=== PATIENT | male | born 1980 | race Caucasian/White ===

== ENCOUNTER 2017-03-24 13:20 | Inpatient (IN) | payer MEDICAID, OTHER ==
[~2017-03-24] VITALS: Ht 175.3 cm; Wt 58.7 kg
[~2017-03-24 13:20] MED LIST: BENZ2TAB10 PO; RISP3 PO
[2017-03-24 14:02] LABS: BASOPHILS % (AUTO) 0.7 % (0.0-2.0); EOSINOPHILS % (AUTO) 4.2 % (1.0-6.0); HEMATOCRIT 44.8 % (41-53); HEMOGLOBIN 14.7 g/dL (13.5-17.5); LYMPHOCYTES # (AUTO) 2.4 K/uL (1.0-4.8); LYMPHOCYTES % (AUTO) 24.1 % (22.0-44.0); MEAN CORPUSCULAR HEMOGLOBIN 31.8 pg (26.0-34.0); MEAN CORPUSCULAR HGB CONC 32.7 G/dL (31.0-37.0); MEAN CORPUSCULAR VOLUME 97 fL (80-100); MONOCYTES # (AUTO) 0.8 K/uL (0.1-1.0); MONOCYTES % (AUTO) 8.1 % (2.0-9.0); NEUTROPHILS # (AUTO) 6.2 K/uL (1.8-7.7); NEUTROPHILS % (AUTO) 62.9 % (40.0-70.0); PLATELET COUNT (AUTO) 198 K/uL (150-450); RED CELL DISTRIBUTION WIDTH 14.1 % (11.5-14.5); WHITE BLOOD COUNT (AUTO) 9.9 K/uL (4.5-11.0)
[2017-03-24 14:10] LABS: ANION GAP 10 mmol/L (8-16); CALCIUM, TOTAL 8.7 mg/dL (8.8-10.5); CARBON DIOXIDE 26 mmol/L (22-29); CHLORIDE 104 mmol/L (98-107); CREATININE 0.79 mg/dL (0.60-1.30); GLOMERULAR FILTR. RATE CALC > 60 mL/min (>60); POTASSIUM 4.2 mmol/L (3.5-5.1); SODIUM SERUM 140 mmol/L (136-145); UREA NITROGEN, BLOOD 13 mg/dL (7-18)
[2017-03-24 14:16] LABS: ALANINE AMINOTRANSFERASE 23 U/L (12-78); ALBUMIN 3.8 g/dL (3.4-5.0); ASPARTATE AMINOTRANSFERASE 17 U/L (15-37); BILIRUBIN,TOTAL 0.3 mg/dL (0.1-1.0); TOTAL PROTEIN, SERUM 7.7 g/dL (6.4-8.2)
[2017-03-24 16:15] VITALS: BP 135/73
[2017-03-24] MEDS ORDERED: ZOLPIDEM TARTRATE 10 MG TABLET PO PRN (16:30)
[2017-03-24] MEDS: LORazepam 2 MG TABLET PO PRN (16:39)
[2017-03-24] MEDS: HALOPERIDOL 5 MG TABLET PO PRN (16:39)
[2017-03-25 07:15] VITALS: BP 117/72
[2017-03-25] MEDS ORDERED: LORazepam 2 MG/ML VIAL ONE (07:41)
[2017-03-25] MEDS ORDERED: DiphenhydrAMINE HCL 50 MG/ML VIAL ONE (07:42)
[2017-03-25] MEDS ORDERED: HALOPERIDOL LACTATE 5 MG/ML VIAL ONE (07:42)
[2017-03-25] MEDS ORDERED: HALOPERIDOL LACTATE 5 MG/ML VIAL IM ONE (07:45)
[2017-03-25] MEDS ORDERED: LORazepam 2 MG/ML VIAL IM ONE (07:45)
[2017-03-25] MEDS ORDERED: DiphenhydrAMINE HCL 50 MG/ML VIAL IM ONE (07:45)
[2017-03-25] MEDS ORDERED: ACETAMINOPHEN 325 MG TABLET PO PRN (08:00)
[2017-03-25] MEDS ORDERED: BACITRACIN 28.4 GM OINTMENT TP PRN (08:00)
[2017-03-25] MEDS ORDERED: IBUPROFEN 600 MG TABLET PO PRN (08:00)
[2017-03-25] MEDS ORDERED: PETROLATUM,WHITE 71 GM JELLY TP PRN (08:00)
[2017-03-25] MEDS ORDERED: ONDANSETRON HCL 4 MG TABLET PO PRN (08:00)
[2017-03-25] MEDS ORDERED: MAG HYDROX/AL HYDROX/SIMETH ES 30 ML SUSPENSION UDCUP PO PRN (08:00)
[2017-03-25] MEDS ORDERED: ALBUTEROL SULFATE HFA 90 MCG/PUFF 8 GM INHALER IH PRN (08:00)
[2017-03-25] MEDS ORDERED: CloNIDine HCL 0.1 MG TABLET PO PRN (08:00)
[2017-03-25] MEDS ORDERED: MAGNESIUM HYDROXIDE SUSPENSION 30 ML UDCUP PO PRN (08:00)
[2017-03-25] MEDS ORDERED: LOPERAMIDE HCL 2 MG CAPSULE PO PRN (08:00)
[2017-03-25] MEDS ORDERED: BENZOCAINE/MENTHOL LOZENGE [8 LOZENGES/PACKET] MM PRN (08:15)
[2017-03-25] MEDS: FluPHENAZine DECANOATE 25 MG/ML IM SCH (16:10)
[2017-03-25] MEDS: BENZTROPINE MESYLATE 2 MG TABLET PO SCH (20:14)
[2017-03-25] MEDS: FluPHENAZine HCL 10 MG TABLET PO SCH (20:14)
[2017-03-25 20:39] VITALS: BP 119/74
[2017-03-26 04:23] VITALS: BP 115/76
[2017-03-26] MEDS: HALOPERIDOL 5 MG TABLET PO PRN ×2 (07:21→11:26)
[2017-03-26] MEDS: LORazepam 2 MG TABLET PO PRN ×2 (07:21→11:26)
[2017-03-26 08:35] VITALS: BP 114/75
[2017-03-26 16:45] VITALS: BP 120/69
[2017-03-26] MEDS: BENZTROPINE MESYLATE 2 MG TABLET PO SCH (20:26)
[2017-03-26] MEDS: FluPHENAZine HCL 10 MG TABLET PO SCH (20:26)
[2017-03-27] MEDS: HALOPERIDOL 5 MG TABLET PO PRN ×2 (07:44→14:31)
[2017-03-27] MEDS: LORazepam 2 MG TABLET PO PRN ×2 (07:44→14:31)
[2017-03-27 07:59] LABS: CHOL/HDL RATIO 2.2 (4.2-7.3); THYROID STIMULATING HORMONE 3.32 uIU/mL (0.36-3.74)
[2017-03-27 09:08] VITALS: BP 129/99
[2017-03-27 16:37] VITALS: BP 127/79
[2017-03-27] MEDS: FluPHENAZine HCL 10 MG TABLET PO SCH (21:23)
[2017-03-27] MEDS: BENZTROPINE MESYLATE 2 MG TABLET PO SCH (21:23)
[2017-03-28 17:02] VITALS: BP 125/88
[2017-03-28] MEDS: BENZTROPINE MESYLATE 2 MG TABLET PO SCH (20:53)
[2017-03-28] MEDS ORDERED: FluPHENAZine HCL 5 MG TABLET PO SCH (21:00)
[2017-03-29 08:04] VITALS: BP 121/75
[2017-03-29] MEDS: CHOLECALCIFEROL (VIT D3) 1,000 UNITS TABLET PO SCH (08:23)
[2017-03-29] MEDS: LORazepam 2 MG TABLET PO PRN (10:27)
[2017-03-29] MEDS: HALOPERIDOL 5 MG TABLET PO PRN (10:27)
[2017-03-29 16:00] VITALS: BP 106/62
[2017-03-29] MEDS: BENZTROPINE MESYLATE 2 MG TABLET PO SCH (20:30)
[2017-03-29] MEDS: FluPHENAZine HCL 10 MG TABLET PO SCH (20:30)
[2017-03-30 09:16] VITALS: BP 110/68
[2017-03-30] MEDS: CHOLECALCIFEROL (VIT D3) 1,000 UNITS TABLET PO SCH (09:17)
[2017-03-30 16:56] VITALS: BP 129/82
[2017-03-30] MEDS: FluPHENAZine HCL 10 MG TABLET PO SCH (21:19)
[2017-03-30] MEDS: BENZTROPINE MESYLATE 2 MG TABLET PO SCH (21:20)
[2017-03-31 08:22] VITALS: BP 119/64
[2017-03-31] MEDS: CHOLECALCIFEROL (VIT D3) 1,000 UNITS TABLET PO SCH (08:28)
[2017-03-31] MEDS: LORazepam 2 MG TABLET PO PRN ×2 (12:24→16:23)
[2017-03-31] MEDS: HALOPERIDOL 5 MG TABLET PO PRN (12:24)
[2017-03-31 17:27] VITALS: BP 105/60
[2017-03-31] MEDS: BENZTROPINE MESYLATE 2 MG TABLET PO SCH (22:17)
[2017-03-31] MEDS: FluPHENAZine HCL 10 MG TABLET PO SCH (22:17)
[2017-04-01 08:01] VITALS: BP 119/62
[2017-04-01] MEDS: CHOLECALCIFEROL (VIT D3) 1,000 UNITS TABLET PO SCH (08:45)
[2017-04-01] MEDS: LORazepam 2 MG TABLET PO PRN (08:45)
[2017-04-01] MEDS: HALOPERIDOL 5 MG TABLET PO PRN (08:45)
[2017-04-01] MEDS: FluPHENAZine HCL 10 MG TABLET PO SCH (20:07)
[2017-04-01] MEDS: BENZTROPINE MESYLATE 2 MG TABLET PO SCH (20:07)
[2017-04-02 08:22] VITALS: BP 111/63
[2017-04-02] MEDS: LORazepam 2 MG TABLET PO PRN (08:34)
[2017-04-02] MEDS: HALOPERIDOL 5 MG TABLET PO PRN (08:34)
[2017-04-02] MEDS: CHOLECALCIFEROL (VIT D3) 1,000 UNITS TABLET PO SCH (08:34)
[2017-04-02 16:18] VITALS: BP 115/65
[2017-04-02] MEDS: FluPHENAZine HCL 10 MG TABLET PO SCH (22:26)
[2017-04-02] MEDS: BENZTROPINE MESYLATE 2 MG TABLET PO SCH (22:27)
[2017-04-03 08:44] VITALS: BP 123/59
[2017-04-03] MEDS: CHOLECALCIFEROL (VIT D3) 1,000 UNITS TABLET PO SCH (09:12)
[2017-04-03 20:45] VITALS: BP 126/62
[2017-04-03] MEDS: BENZTROPINE MESYLATE 2 MG TABLET PO SCH (22:04)
[2017-04-03] MEDS: FluPHENAZine HCL 10 MG TABLET PO SCH (22:04)
[2017-04-04] MEDS: CHOLECALCIFEROL (VIT D3) 1,000 UNITS TABLET PO SCH (08:14)
[2017-04-04 08:33] VITALS: BP 115/73
[2017-04-04 17:10] VITALS: BP 131/75
[2017-04-04] MEDS: BENZTROPINE MESYLATE 2 MG TABLET PO SCH (20:14)
[2017-04-04] MEDS: FluPHENAZine HCL 10 MG TABLET PO SCH (20:14)
[2017-04-05] MEDS: CHOLECALCIFEROL (VIT D3) 1,000 UNITS TABLET PO SCH (08:45)
[2017-04-05] MEDS: RisperiDONE 3 MG TABLET PO SCH ×2 (08:45→16:25)
[2017-04-05 10:50] VITALS: BP 131/73
[2017-04-05] MEDS: BENZTROPINE MESYLATE 2 MG TABLET PO SCH (20:59)
[2017-04-05] MEDS: FluPHENAZine HCL 10 MG TABLET PO SCH (20:59)
[2017-04-06 08:02] VITALS: BP 114/74
[2017-04-06] MEDS: RisperiDONE 3 MG TABLET PO SCH ×2 (09:15→17:16)
[2017-04-06] MEDS: CHOLECALCIFEROL (VIT D3) 1,000 UNITS TABLET PO SCH (09:15)
[2017-04-06 17:00] VITALS: BP 115/80
[2017-04-06] MEDS: FluPHENAZine HCL 10 MG TABLET PO SCH (20:26)
[2017-04-06] MEDS: BENZTROPINE MESYLATE 2 MG TABLET PO SCH (20:27)
[2017-04-07 08:26] VITALS: BP 127/90
[2017-04-07] MEDS: CHOLECALCIFEROL (VIT D3) 1,000 UNITS TABLET PO SCH (09:32)
[2017-04-07] MEDS: RisperiDONE 3 MG TABLET PO SCH ×2 (09:32→16:21)
[2017-04-07 20:03] VITALS: BP 131/70
[2017-04-07] MEDS: BENZTROPINE MESYLATE 2 MG TABLET PO SCH (20:17)
[2017-04-07] MEDS: FluPHENAZine HCL 10 MG TABLET PO SCH (20:17)
[2017-04-08 08:18] VITALS: BP 104/60
[2017-04-08] MEDS: CHOLECALCIFEROL (VIT D3) 1,000 UNITS TABLET PO SCH (08:59)
[2017-04-08] MEDS: RisperiDONE 3 MG TABLET PO SCH (09:00)
[2017-04-08] MEDS: FluPHENAZine DECANOATE 25 MG/ML IM SCH (09:09)
[2017-04-08] MEDS ORDERED: FLUP10 PO (11:59)
[2017-04-08] MEDS ORDERED: RISP3 PO (11:59)
[2017-04-08] MEDS ORDERED: BENZ2TAB10 PO (11:59)
[2017-04-08] MEDS ORDERED: FLUD25I SQ (11:59)
[2017-04-08] MEDS ORDERED: VITAD1000 PO (12:23)
== END 2017-04-08 14:29 | disposition home or self-care (01) | DRG 750 ==
LOC: EMS 13:25 → 3EC 15:23
PROVIDERS: ADMIT Psychiatry & Neurology Psychiatry; ATTEND Psychiatry & Neurology Psychiatry
DX: F20.0 Paranoid schizophrenia (principal); E55.9 Vitamin D deficiency, unspecified; E83.51 Hypocalcemia; F17.210 Nicotine dependence, cigarettes, uncomplicated; K59.00 Constipation, unspecified; G47.00 Insomnia, unspecified; Z71.6 Tobacco abuse counseling; Z59.0 Homelessness; Z56.0 Unemployment, unspecified; Z79.899 Other long term (current) drug therapy
CPT/HCPCS: 82306; 84443; 99285; G0480; J1200; J1630; J2060; J2680

== ENCOUNTER 2017-04-12 19:23 | Emergency (ER) | payer MEDICAID, OTHER ==
[~2017-04-12] VITALS: Ht 172.7 cm; Wt 88.6 kg
[~2017-04-12 19:23] MED LIST changes: +FLUD25I SQ; +FLUP10 PO; +VITAD1000 PO
[2017-04-12 20:57] LABS: BASOPHILS % (AUTO) 0.1 % (0.0-2.0); EOSINOPHILS % (AUTO) 0.8 % (1.0-6.0); HEMATOCRIT 43.8 % (41-53); HEMOGLOBIN 14.2 g/dL (13.5-17.5); LYMPHOCYTES # (AUTO) 1.8 K/uL (1.0-4.8); LYMPHOCYTES % (AUTO) 9.8 % (22.0-44.0); MEAN CORPUSCULAR HEMOGLOBIN 31.5 pg (26.0-34.0); MEAN CORPUSCULAR HGB CONC 32.5 G/dL (31.0-37.0); MEAN CORPUSCULAR VOLUME 97 fL (80-100); MONOCYTES # (AUTO) 0.9 K/uL (0.1-1.0); MONOCYTES % (AUTO) 4.5 % (2.0-9.0); NEUTROPHILS % (AUTO) 84.8 % (40.0-70.0); PLATELET COUNT (AUTO) 239 K/uL (150-450); RED BLOOD CELL COUNT(AUTO) 4.52 MIL/uL (4.50-5.90); RED CELL DISTRIBUTION WIDTH 13.3 % (11.5-14.5); WHITE BLOOD COUNT (AUTO) 18.9 K/uL (4.5-11.0)
[2017-04-12 21:07] LABS: ANION GAP 9 mmol/L (8-16); CALCIUM, TOTAL 8.2 mg/dL (8.8-10.5); CARBON DIOXIDE 27 mmol/L (22-29); CHLORIDE 98 mmol/L (98-107); CREATININE 0.82 mg/dL (0.60-1.30); GLOMERULAR FILTR. RATE CALC > 60 mL/min (>60); SODIUM SERUM 134 mmol/L (136-145); UREA NITROGEN, BLOOD 2 mg/dL (7-18)
[2017-04-12 21:14] LABS: ALANINE AMINOTRANSFERASE 25 U/L (12-78); ALBUMIN 3.6 g/dL (3.4-5.0); ASPARTATE AMINOTRANSFERASE 17 U/L (15-37); BILIRUBIN,TOTAL 0.3 mg/dL (0.1-1.0); TOTAL PROTEIN, SERUM 7.1 g/dL (6.4-8.2)
[2017-04-12] MEDS ORDERED: POTASSIUM CHLORIDE 10% 40 MEQ/30 ML LIQUID UDCUP PO ONE (21:45)
[2017-04-12] MEDS ORDERED: GENTAMICIN SULFATE 0.3% OPHTHALMIC SOLUTION 5 ML OU ONE (22:00)
[2017-04-12 22:19] VITALS: BP 142/68
== END 2017-04-12 22:20 | disposition home or self-care (01) ==
LOC: EMS 19:24
DX: H57.11 Ocular pain, right eye (principal); H57.12 Ocular pain, left eye; F20.9 Schizophrenia, unspecified
CPT/HCPCS: 36415; 80053; 80307; 85025; 99284; G0480

== ENCOUNTER 2017-10-16 18:26 | Inpatient (IN) | payer MEDICAID, OTHER ==
[~2017-10-16] VITALS: Ht 165.1 cm; Wt 58.0 kg
[2017-10-16 19:01] LABS: BASOPHILS % (AUTO) 0.6 % (0.0-2.0); EOSINOPHILS % (AUTO) 3.3 % (1.0-6.0); HEMATOCRIT 42.3 % (41-53); HEMOGLOBIN 14.6 g/dL (13.5-17.5); LYMPHOCYTES # (AUTO) 2.7 K/uL (1.0-4.8); LYMPHOCYTES % (AUTO) 28.3 % (22.0-44.0); MEAN CORPUSCULAR HEMOGLOBIN 33.1 pg (26.0-34.0); MEAN CORPUSCULAR HGB CONC 34.6 G/dL (31.0-37.0); MEAN CORPUSCULAR VOLUME 96 fL (80-100); MONOCYTES # (AUTO) 0.5 K/uL (0.1-1.0); MONOCYTES % (AUTO) 4.7 % (2.0-9.0); NEUTROPHILS # (AUTO) 6.1 K/uL (1.8-7.7); NEUTROPHILS % (AUTO) 63.1 % (40.0-70.0); PLATELET COUNT (AUTO) 226 K/uL (150-450); RED BLOOD CELL COUNT(AUTO) 4.42 MIL/uL (4.50-5.90); RED CELL DISTRIBUTION WIDTH 13.5 % (11.5-14.5); WHITE BLOOD COUNT (AUTO) 9.7 K/uL (4.5-11.0)
[2017-10-16 19:07] LABS: ANION GAP 12 mmol/L (8-16); CALCIUM, TOTAL 8.7 mg/dL (8.8-10.5); CARBON DIOXIDE 23 mmol/L (22-29); CHLORIDE 103 mmol/L (98-107); CREATININE 0.83 mg/dL (0.60-1.30); GLOMERULAR FILTR. RATE CALC > 60 mL/min (>60); POTASSIUM 3.9 mmol/L (3.5-5.1); SODIUM SERUM 138 mmol/L (136-145); UREA NITROGEN, BLOOD 17 mg/dL (7-18)
[2017-10-16 19:14] LABS: ALANINE AMINOTRANSFERASE 32 U/L (12-78); ALBUMIN 3.7 g/dL (3.4-5.0); ASPARTATE AMINOTRANSFERASE 54 U/L (15-37); BILIRUBIN,TOTAL 0.2 mg/dL (0.1-1.0); TOTAL PROTEIN, SERUM 7.3 g/dL (6.4-8.2)
[2017-10-17 09:01] LABS: CHOL/HDL RATIO 2.3 (4.2-7.3)
[2017-10-17] MEDS: LORazepam 2 MG TABLET PO PRN (15:59)
[2017-10-17] MEDS: HALOPERIDOL 5 MG TABLET PO PRN (15:59)
[2017-10-17 16:24] VITALS: BP 124/74
[2017-10-18] MEDS ORDERED: INFLUENZA VIRUS VACCINE QVS 2017-18 (3YR+)/PF 60 MCG/0.5 ML SYRINGE IM ONE (01:00)
[2017-10-18 07:14] VITALS: BP 102/66
[2017-10-18 08:12] VITALS: BP 107/65
[2017-10-18] MEDS: LORazepam 2 MG TABLET PO PRN ×3 (08:20→16:55)
[2017-10-18] MEDS: HALOPERIDOL 5 MG TABLET PO PRN ×2 (08:20→12:55)
[2017-10-18] MEDS ORDERED: CloNIDine HCL 0.1 MG TABLET PO PRN (08:30)
[2017-10-18] MEDS ORDERED: ALBUTEROL SULFATE HFA 90 MCG/PUFF 8 GM INHALER IH PRN (08:30)
[2017-10-18] MEDS ORDERED: MAGNESIUM HYDROXIDE SUSPENSION 30 ML UDCUP PO PRN (08:30)
[2017-10-18] MEDS ORDERED: BACITRACIN 28.4 GM OINTMENT TP PRN (08:30)
[2017-10-18] MEDS ORDERED: IBUPROFEN 600 MG TABLET PO PRN (08:30)
[2017-10-18] MEDS ORDERED: ONDANSETRON HCL 4 MG TABLET PO PRN (08:30)
[2017-10-18] MEDS ORDERED: PETROLATUM,WHITE 71 GM JELLY TP PRN (08:30)
[2017-10-18] MEDS ORDERED: LOPERAMIDE HCL 2 MG CAPSULE PO PRN (08:30)
[2017-10-18] MEDS ORDERED: ACETAMINOPHEN 325 MG TABLET PO PRN (08:30)
[2017-10-18] MEDS ORDERED: BENZOCAINE/MENTHOL LOZENGE MM PRN (08:30)
[2017-10-18] MEDS ORDERED: MAG HYDROX/AL HYDROX/SIMETH ES 30 ML SUSPENSION UDCUP PO PRN (08:30)
[2017-10-18] MEDS: CHOLECALCIFEROL (VIT D3) 1,000 UNITS TABLET PO SCH (09:10)
[2017-10-18 16:00] VITALS: BP 119/82
[2017-10-18] MEDS: RisperiDONE 3 MG TABLET PO SCH (16:55)
[2017-10-18] MEDS: BENZTROPINE MESYLATE 2 MG TABLET PO SCH (20:53)
[2017-10-18] MEDS: ZOLPIDEM TARTRATE 10 MG TABLET PO PRN (20:53)
[2017-10-18] MEDS: FluPHENAZine HCL 10 MG TABLET PO SCH (20:53)
[2017-10-19 05:54] VITALS: BP 113/59
[2017-10-19 08:23] VITALS: BP 131/72
[2017-10-19] MEDS: RisperiDONE 3 MG TABLET PO SCH ×2 (09:26→16:12)
[2017-10-19] MEDS: CHOLECALCIFEROL (VIT D3) 1,000 UNITS TABLET PO SCH (09:26)
[2017-10-19 16:00] VITALS: BP 122/82
[2017-10-19] MEDS: HALOPERIDOL 5 MG TABLET PO PRN (16:12)
[2017-10-19] MEDS: LORazepam 2 MG TABLET PO PRN ×2 (16:12→20:42)
[2017-10-19] MEDS: FluPHENAZine HCL 10 MG TABLET PO SCH (20:41)
[2017-10-19] MEDS: BENZTROPINE MESYLATE 2 MG TABLET PO SCH (20:42)
[2017-10-19] MEDS: ZOLPIDEM TARTRATE 10 MG TABLET PO PRN (20:42)
[2017-10-20 04:49] VITALS: BP 121/65
[2017-10-20] MEDS: RisperiDONE 3 MG TABLET PO SCH ×2 (08:58→16:22)
[2017-10-20] MEDS: CHOLECALCIFEROL (VIT D3) 1,000 UNITS TABLET PO SCH (08:58)
[2017-10-20 09:21] VITALS: BP 122/73
[2017-10-20 16:30] VITALS: BP 126/75
[2017-10-20] MEDS: BENZTROPINE MESYLATE 2 MG TABLET PO SCH (20:31)
[2017-10-20] MEDS: ZOLPIDEM TARTRATE 10 MG TABLET PO PRN (20:31)
[2017-10-20] MEDS: FluPHENAZine HCL 10 MG TABLET PO SCH (20:31)
[2017-10-21 00:13] VITALS: BP 109/71
[2017-10-21] MEDS: CHOLECALCIFEROL (VIT D3) 1,000 UNITS TABLET PO SCH (08:25)
[2017-10-21] MEDS: LORazepam 2 MG TABLET PO PRN (08:25)
[2017-10-21] MEDS: HALOPERIDOL 5 MG TABLET PO PRN (08:25)
[2017-10-21] MEDS: RisperiDONE 3 MG TABLET PO SCH (08:25)
[2017-10-21 08:32] VITALS: BP 113/77
== END 2017-10-21 14:55 | disposition home or self-care (01) | DRG 750 ==
LOC: EMS 18:28 → EEVIPCON 18:28 → B3A 10-17 15:27
DX: F20.0 Paranoid schizophrenia (principal); Z91.14 Patient's other noncompliance with medication regimen; E55.9 Vitamin D deficiency, unspecified; F17.200 Nicotine dependence, unspecified, uncomplicated; F18.90 Inhalant use, unspecified, uncomplicated; G47.00 Insomnia, unspecified; K59.00 Constipation, unspecified; F41.9 Anxiety disorder, unspecified; Z28.21 Immunization not carried out because of patient refusal; Z79.899 Other long term (current) drug therapy; Z71.51 Drug abuse counseling and surveillance of drug abuser
CPT/HCPCS: 99285; G0480

== ENCOUNTER 2018-04-06 13:11 | Inpatient (IN) | payer MEDICAID, OTHER ==
[~2018-04-06] VITALS: Ht 172.7 cm; Wt 61.7 kg
[~2018-04-06 13:11] MED LIST changes: -FLUD25I SQ
[2018-04-06 14:21] LABS: BASOPHILS % (AUTO) 0.9 % (0.0-2.0); HEMATOCRIT 45.7 % (41-53); LYMPHOCYTES # (AUTO) 1.9 K/uL (1.0-4.8); LYMPHOCYTES % (AUTO) 27.2 % (22.0-44.0); MEAN CORPUSCULAR HEMOGLOBIN 33.2 pg (26.0-34.0); MEAN CORPUSCULAR VOLUME 95 fL (80-100); MONOCYTES # (AUTO) 0.5 K/uL (0.1-1.0); MONOCYTES % (AUTO) 6.8 % (2.0-9.0); NEUTROPHILS # (AUTO) 4.2 K/uL (1.8-7.7); NEUTROPHILS % (AUTO) 62.1 % (40.0-70.0); PLATELET COUNT (AUTO) 190 K/uL (150-450); RED BLOOD CELL COUNT(AUTO) 4.82 MIL/uL (4.50-5.90); RED CELL DISTRIBUTION WIDTH 13.2 % (11.5-14.5)
[2018-04-06 14:35] LABS: ANION GAP 10 mmol/L (8-16); CALCIUM, TOTAL 8.7 mg/dL (8.8-10.5); CARBON DIOXIDE 26 mmol/L (22-29); CHLORIDE 106 mmol/L (98-107); CREATININE 0.93 mg/dL (0.60-1.30); GLOMERULAR FILTR. RATE CALC > 60 mL/min (>60); GLUCOSE,RANDOM 92 mg/dL (70-110); POTASSIUM 4.1 mmol/L (3.5-5.1); SODIUM SERUM 142 mmol/L (136-145); UREA NITROGEN, BLOOD 16 mg/dL (7-18)
[2018-04-06 14:41] LABS: ALANINE AMINOTRANSFERASE 25 U/L (12-78); ALBUMIN 3.8 g/dL (3.4-5.0); ALKALINE PHOSPHATASE 86 U/L (46-116); ASPARTATE AMINOTRANSFERASE 22 U/L (15-37); BILIRUBIN,TOTAL 0.3 mg/dL (0.1-1.0); TOTAL PROTEIN, SERUM 7.4 g/dL (6.4-8.2)
[2018-04-06 15:27] LABS: AMPHET/METH SCREEN,URINE NEGATIVE (NEGATIVE); BARBITURATE SCREEN, URINE NEGATIVE (NEGATIVE); BENZODIAZEPINES SCREEN,URINE NEGATIVE (NEGATIVE); CANNABINOID SCREEN,URINE NEGATIVE (NEGATIVE); COCAINE SCREEN,URINE NEGATIVE (NEGATIVE); METHADONE SCREEN, URINE NEGATIVE (NEGATIVE); OPIATE SCREEN,URINE NEGATIVE (NEGATIVE)
[2018-04-06 15:28] LABS: PHENCYCLIDINE SCREEN,URINE NEGATIVE (NEGATIVE)
[2018-04-06] MEDS ORDERED: LORazepam 2 MG/ML VIAL IM ONE (15:30)
[2018-04-06] MEDS ORDERED: DiphenhydrAMINE HCL 50 MG/ML VIAL IM ONE (15:30)
[2018-04-06] MEDS ORDERED: HALOPERIDOL LACTATE 5 MG/ML VIAL IM ONE (15:30)
[2018-04-06] MEDS ORDERED: ZOLPIDEM TARTRATE 10 MG TABLET PO PRN (16:30)
[2018-04-06 18:39] VITALS: BP 127/96
[2018-04-06] MEDS ORDERED: ALBUTEROL SULFATE HFA 90 MCG/PUFF 8 GM INHALER IH PRN (19:15)
[2018-04-06] MEDS ORDERED: BACITRACIN 28.4 GM OINTMENT TP PRN (19:15)
[2018-04-06] MEDS ORDERED: BENZOCAINE/MENTHOL LOZENGE MM PRN (19:15)
[2018-04-06] MEDS ORDERED: ACETAMINOPHEN 325 MG TABLET PO PRN (19:15)
[2018-04-06] MEDS ORDERED: MAGNESIUM HYDROXIDE SUSPENSION 30 ML UDCUP PO PRN (19:15)
[2018-04-06] MEDS ORDERED: CloNIDine HCL 0.1 MG TABLET PO PRN (19:15)
[2018-04-06] MEDS ORDERED: ONDANSETRON HCL 4 MG TABLET PO PRN (19:15)
[2018-04-06] MEDS ORDERED: PETROLATUM,WHITE 71 GM JELLY TP PRN (19:15)
[2018-04-06] MEDS ORDERED: MAG HYDROX/AL HYDROX/SIMETH ES 30 ML SUSPENSION UDCUP PO PRN (19:15)
[2018-04-06] MEDS ORDERED: IBUPROFEN 600 MG TABLET PO PRN (19:15)
[2018-04-06] MEDS ORDERED: LOPERAMIDE HCL 2 MG CAPSULE PO PRN (19:15)
[2018-04-07 02:28] VITALS: BP 135/88
[2018-04-07] MEDS: DOCUSATE SODIUM 100 MG CAPSULE PO SCH (08:57)
[2018-04-07] MEDS: OMEPRAZOLE 20 MG CAPSULE PO SCH (08:57)
[2018-04-07] MEDS: NICOTINE 14 MG/24 HOUR PATCH TD SCH (09:00)
[2018-04-07 09:27] LABS: CHOL/HDL RATIO 2.9 (4.2-7.3)
[2018-04-07] MEDS: RisperiDONE 2 MG TABLET PO SCH ×2 (10:59→20:53)
[2018-04-07] MEDS: LORazepam 2 MG TABLET PO PRN (16:25)
[2018-04-08 02:10] VITALS: BP 132/82
[2018-04-08 08:07] VITALS: BP 112/74
[2018-04-08] MEDS: RisperiDONE 2 MG TABLET PO SCH ×2 (09:09→20:33)
[2018-04-08] MEDS: LORazepam 2 MG TABLET PO PRN ×2 (09:09→16:08)
[2018-04-08] MEDS: NICOTINE 14 MG/24 HOUR PATCH TD SCH (09:09)
[2018-04-08] MEDS: CHOLECALCIFEROL (VIT D3) 1,000 UNITS TABLET PO SCH (09:09)
[2018-04-08] MEDS: DOCUSATE SODIUM 100 MG CAPSULE PO SCH (09:09)
[2018-04-08] MEDS: OMEPRAZOLE 20 MG CAPSULE PO SCH (09:09)
[2018-04-08] MEDS: HALOPERIDOL 5 MG TABLET PO PRN ×2 (09:10→16:08)
[2018-04-08 16:02] VITALS: BP 128/79
[2018-04-09 02:55] VITALS: BP 130/88
[2018-04-09 08:22] VITALS: BP 120/74
[2018-04-09] MEDS: NICOTINE 14 MG/24 HOUR PATCH TD SCH (08:42)
[2018-04-09] MEDS: RisperiDONE 2 MG TABLET PO SCH (08:43)
[2018-04-09] MEDS: CHOLECALCIFEROL (VIT D3) 1,000 UNITS TABLET PO SCH (08:43)
[2018-04-09] MEDS: HALOPERIDOL 5 MG TABLET PO PRN (08:43)
[2018-04-09] MEDS: DOCUSATE SODIUM 100 MG CAPSULE PO SCH (08:43)
[2018-04-09] MEDS: LORazepam 2 MG TABLET PO PRN (08:43)
[2018-04-09] MEDS: OMEPRAZOLE 20 MG CAPSULE PO SCH (08:43)
[2018-04-09] MEDS ORDERED: DOCU100C33 PO (14:14)
[2018-04-09] MEDS ORDERED: RISP2TAB76 PO (14:14)
[2018-04-09] MEDS ORDERED: OMEP20CA10 PO (14:15)
[2018-04-09] MEDS ORDERED: VITAD1000 PO (14:16)
== END 2018-04-09 15:03 | disposition home or self-care (01) | DRG 750 ==
LOC: EEVIPCON 13:11 → EMS 13:14 → B3A 16:52
PROVIDERS: ADMIT Psychiatry & Neurology Child & Adolescent Psychiatry; ATTEND Psychiatry & Neurology Child & Adolescent Psychiatry
DX: F25.9 Schizoaffective disorder, unspecified (principal); R45.851 Suicidal ideations; Z59.0 Homelessness; E55.9 Vitamin D deficiency, unspecified; F17.200 Nicotine dependence, unspecified, uncomplicated; F41.9 Anxiety disorder, unspecified; G47.00 Insomnia, unspecified; K59.00 Constipation, unspecified; Z71.6 Tobacco abuse counseling
CPT/HCPCS: 96372; 99285; G0480; J1200; J1630; J2060